=== PATIENT | female | born 1960 | race Caucasian/White ===

== ENCOUNTER 2016-07-05 16:26 | Emergency (ER) | payer MEDICARE, OTHER ==
[~2016-07-05] VITALS: Ht 157.5 cm; Wt 95.3 kg
[2016-07-05] MEDS ORDERED: ESCI20TA PO (16:58)
[2016-07-05] MEDS ORDERED: TIZA2CAP9 PO (16:58)
[2016-07-05] MEDS ORDERED: MELO15TA39 PO (16:58)
[2016-07-05] MEDS ORDERED: OMEP20CA12 PO (16:58)
[2016-07-05] MEDS ORDERED: GABA-488 PO (16:58)
[2016-07-05] MEDS ORDERED: ARPZ20T PO (16:58)
--- NOTE | 2016-07-05 18:54 | ED Back Pain ---
General Chief Complaint: Back Problems Stated Complaint: LOWER BACK AND LEG PAIN Nursing Triage Note: Pt has chronic low back pain worse today. Pt reports pain radiates down both legs. Nursing Sepsis Screen: No Definite Risk (LIBERTY ESPINAL MD) History of Present Illness Time Seen by Provider: 18:50 Initial Comments This 55 year old female presents w severe low back pain radiating down both legs which began this morning. The patient has associated numbness in both feet. No loss of bowel or bladder control. No fever, chill, or fall. (LIBERTY ESPINAL MD) Allergies and Home Medications Allergies Coded Allergies: aspirin (Unverified Allergy, Unknown, 07/05/16) hydromorphone (Unverified Allergy, Unknown, 07/05/16) Home Medications Aripiprazole 20 Mg Tablet 20 MG PO DAILY (Reported) Cyclobenzaprine HCl 10 Mg Tablet #15 10 MG PO Q8H Prescribed by: ABBIE BECKETT on 07/05/162029 Escitalopram Oxalate 20 Mg Tablet 20 MG PO DAILY (Reported) Gabapentin 300 Mg Capsule 300 MG PO TID (Reported) Meloxicam 15 Mg Tablet 15 MG PO DAILY (Reported) Meloxicam 15 Mg Tablet #10 15 MG PO DAILY Prescribed by: ABBIE BECKETT on 07/05/16 2030 Omeprazole 20 Mg Capsule.dr 20 MG PO DAILY (Reported) Tizanidine HCl 2 Mg Capsule Unknown Dose PO TID (Reported) Constitutional: No chills EENTM: No ear pain Respiratory: No cough Cardiovascular: No chest pain Gastrointestinal: No abdominal pain, No nausea, No vomiting Genitourinary: No decreased output Musculoskeletal: see HPI back painNo joint pain Skin: No rash Psychiatric/Neurological: No Symptoms Reported (LIBERTY ESPINAL MD) Past Psxyswd-Aexzos-Jnspld Hx Patient Social History Alcohol Use: Denies Use Recreational Drug Use: No Smoking Status: Never a Smoker Recent Foreign Travel: No Contact w/Someone Who Travel: No Recent Infectious Disease Expo: No Recent Hopitalizations: No (LIBERTY ESPINAL MD) Alcohol Use: Past History (HISTORY OF ABUSE, DENIES RECENT USE, PER PT ON 07/05) Recreational Drug Use: No Smoking Status: Current Everyday Smoker (1/2-1 PPD) Type Used: Cigarettes (ABBIE BECKETT DO) Seasonal Allergies Seasonal Allergies: No (LIBERTY ESPINAL MD) Surgeries HX Surgeries: Yes (carpal tunnel) Surgeries: Gallbladder, Hysterectomy (LIBERTY ESPINAL MD) HX Surgeries: Yes (HYST/BSO; RIGHT CARPAL TUNNEL) Surgeries: Gallbladder, Hysterectomy, Oophorectomy, Orthopedic (SOPHY,ABBIE K DO) Respiratory Hx Respiratory Disorders: Yes Respiratory Disorders: COPD (LIBERTY ESPINAL MD) Hx Respiratory Disorders: Yes Respiratory Disorders: Chronic Bronchitis, COPD (SOPHY,ABBIE K DO) Cardiovascular Hx Cardiac Disorders: No (LIBERTY ESPINAL MD) Hx Cardiac Disorders: No (SOPHY,ABBIE K DO) Neurological Hx Neurological Disorders: No (LIBERTY ESPINAL MD) Hx Neurological Disorders: No (SOPHY,ABBIE K DO) 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 System Hx 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 Disorders: No (LIBERTY ESPINAL MD) 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 (SOPHY,ABBIE K DO) Genitourinary Hx Genitourinary Disorders: No (LIBERTY ESPINAL MD) Hx Genitourinary Disorders: No (SOPHY,ABBEI K DO) Gastrointestinal Hx Gastrointestinal Disorders: No (LIBERTY ESPINAL MD) Hx Gastrointestinal Disorders: Yes (S/P JAQUELINE) Gastrointestinal Disorders: Gall Bladder Disease (SOPHY,ABBIE K DO) Musculoskeletal Hx Musculoskeletal Disorders: Yes Musculoskeletal Disorders: Degenerate Disk Disease, Chronic Back Pain (LIBERTY ESPINAL MD) Hx Musculoskeletal Disorders: Yes ("DISABILTY SINCE 2008 FOR CHRONIC BACK PAIN "; RIGHT CARPAL TUNNEL REPAIR ) Musculoskeletal Disorders: Degenerate Disk Disease, Chronic Back Pain (SOPHY,ABBIE K DO) Endocrine Hx Endocrine Disorders: No (LIBERTY ESPINAL MD) Hx Endocrine Disorders: No (SOPHYABBIE K DO) HEENT HX ENT Disorders: No (LIBERTY ESPINAL MD) HX ENT Disorders: No (SOPHY,ABBIE K DO) Cancer Hx Cancer: No (LIBERTY ESPINAL MD) Hx Cancer: No (SOPHYABBIE K DO) Psychosocial Hx Psychiatric Problems: No (LIBERTY ESPINAL MD) Hx Psychiatric Problems: Yes Behavioral Health Disorders: Anxiety, Bipolar, Depression (SOPHY,ABBIE K DO) Integumentary HX Skin/Integumentary Disorder: No (LIBERTY ESPINAL MD) Blood Transfusions Hx Blood Disorders: No (LIBERTY ESPINAL MD) Reviewed Nursing Assessment Reviewed/Agree w Nursing PMH: Yes (LIBERTY ESPINAL MD) Physical Exam Vital Signs Vital Sign - Last 12Hours 07/05/16 16:53 Temp 99.1 Pulse 98 Resp 18 B/P 107/74 Pulse Ox 93 O2 Delivery Room Air (ABBIE BECKETT DO) Vital Signs Capillary Refill : Less Than 3 Seconds (LIBERTY ESPINAL MD) General Appearance: No Apparent Distress HEENT: TMs Normal Neck: Normal Inspection Cardiovascular: Regular Rate, Rhythm Respiratory: Lungs Clear Gastrointestinal: Normal Bowel Sounds Back: Normal Inspection Extremity: Normal Inspection Neurologic/Psychiatric: No Motor/Sensory Deficits Normal Mood/Affect Skin: Normal Color Warm/Dry (LIBERTY ESPINAL MD) General Appearance: No Apparent Distress Other (DOES NOT APPEAR TO BE IN ANY DISCOMFORT. WALKS UPRIGHT AND MOVES WITHOUT DIFFICULTY) HEENT: PERRL/EOMI Other (POOR DENTITION AND MULTIPLE MISSING TEETH) Neck: Full Range of Motion Normal Inspection Non Tender Cardiovascular: Regular Rate, Rhythm No Edema No JVD No Murmur Normal Peripheral Pulses Respiratory: Chest Non Tender Normal Breath Sounds No Accessory Muscle Use No Respiratory Distress Peripheral Pulses: 2+ Dorsalis Pedis (R), 2+ Left Dors-Pedis (L) Gastrointestinal: Normal Bowel Sounds No Organomegaly No Pulsatile Mass Non Tender Soft Back: Other (MILD DIFFUSE LOWER BACK TENDERNESS. DTR'S INTACT. NEGATIVE STRAIGHT LEG RAISING TEST BILATERALLY. 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 Norm as Tested Skin: Normal Color Warm/DryNo Rash (ABBIE BECKETT DO) Progress/Results/Core Measures Results/Orders Lab Results Laboratory Tests Test 07/05/16 19:53 Range/Units Ur Tricyclic Antidepressants Screen NEGATIVE NEGATIVE Urine Amphetamines Screen NEGATIVE NEGATIVE Urine Bacteria NONE /HPF Urine Barbiturates Screen NEGATIVE NEGATIVE Urine Benzodiazepines Screen NEGATIVE NEGATIVE Urine Bilirubin NEGATIVE NEGATIVE Urine Cannabinoids Screen NEGATIVE NEGATIVE Urine Casts NONE /LPF Urine Clarity CLEAR Urine Cocaine Screen NEGATIVE NEGATIVE Urine Color YELLOW Urine Crystals NONE /LPF Urine Culture Indicated NO Urine Glucose (UA) NEGATIVE NEGATIVE Urine Ketones NEGATIVE NEGATIVE Urine Leukocyte Esterase NEGATIVE NEGATIVE Urine Methadone Screen NEGATIVE NEGATIVE Urine Methamphetamines Screen NEGATIVE NEGATIVE Urine Mucus SMALL H /LPF Urine Nitrite NEGATIVE NEGATIVE Urine Opiates Screen NEGATIVE NEGATIVE Urine Oxycodone Screen NEGATIVE NEGATIVE Urine Phencyclidine Screen NEGATIVE NEGATIVE Urine Propoxyphene Screen NEGATIVE NEGATIVE Urine Protein NEGATIVE NEGATIVE Urine RBC NONE /HPF Urine RBC (Auto) NEGATIVE NEGATIVE Urine Specific [place] 1.015 L 1.016-1.022 Urine Squamous Epithelial Cells 2-5 /HPF Urine Urobilinogen NORMAL NORMAL MG/DL Urine WBC NONE /HPF Urine pH 6 5-9 (ABBIE BECKETT DO) My Orders Orders-ABBIE BECKETT DO Drug Screen Stat (Urine) (07/05/16 19:37) Ua Culture If Indicated (07/05/16 19:37) (ABBIE BECKETT DO) Medications Given in ED Current Medications Medications Dose Ordered Sig/Amita Route Start Time Stop Time Status Last Admin Dose Admin Fentanyl Citrate 100 mcg ONCE PRN IM 07/05/16 19:00 07/05/16 21:08 DC 07/05/16 18:59 100 MCG (ABBIE BECKETT DO) Vital Signs/I&O Vital Sign - Last 12Hours 07/05/16 07/05/16 16:53 21:04 Temp 99.1 99.1 Pulse 98 95 Resp 18 16 B/P 107/74 Pulse Ox 93 95 O2 Delivery Room Air (ABBIE BECKETT DO) Blood Pressure Mean: 85 Progress Note : Progress Note 1900--ASSUMED CARE FROM DR. ESPINAL. CT PENDING. PT STATES SHE HAS HAD CHRONIC BACK PAIN FOR OVER 15 YEARS, AND HAS BEEN ON DISABILITY FOR BACK PAIN "DEGENERATIVE DISC DISEASE" SINCE 2008. CLAIMS SHE HAS NEVER SEEN ANY KIND OF SPECIALIST FOR HER BACK--NEVER SEEN SURGEON OR PAIN SPECIALIST JUST MOVED HERE 05/25/16 FROM [place]. HAS NEW PT APPOINTMENT WITH [facility] [place] STATES SHE TAKES MELOXICAM, TRAMADOL, GABAPENTIN, AND TIZANIDINE FOR CHRONIC BACK PAIN--HAS BEEN OUT FOR 2 WEEKS STATES PAIN IS IN LOWER BACK AND RADIATES DOWN BOTH LEGS AND BOTH FEET FEEL NUMB /TINGLY--ALL ARE CHRONIC, BUT WORSE SINCE THIS AM--BUT NOT ANY DIFFERENT THAT WHAT SHE HAS HAD IN THE PAST. HAS NOT TAKEN ANYTHING FOR PAIN TODAY NO INJURY NO DIFFICULTY WITH BOWELS OR BLADDER PT WAS GIVEN 100 MCG FENTANYL PRIOR TO MY ARRIVAL PT STATES PAIN IS BETTER AT TIME OF DISMISSAL PT AMBULATES OUT OF ER WITHOUT DIFFICULTY (ABBIE BECKETT DO) Diagnostic Imaging Comments CT LUMBAR SPINE--MILD DEGENERATIVE CHANGES AT L4-5 AND L5-S1, PER RADIOLOGIST REPORT @ 2026 Reviewed: Reviewed by Me (ABBIE BECKETT DO) Departure Impression Impression: Primary Impression: Chronic back pain Disposition: HOME, SELF-CARE Condition: Stable Departure-Patient Inst. Referrals: [facility] Patient Instructions: MANAGING YOUR CHRONIC PAIN, Low Back Pain (DC) Add. Discharge Instructions: ALTERNATE ICE AND HEAT TO SORE AREAS AT 20 MINUTE INTERVALS KEEP YOUR APPOINTMENT WITH [facility] THIS [place]EEK SCHEDULED All discharge instructions reviewed with patient and/or family. Voiced understanding. Scripts Cyclobenzaprine HCl 10 Mg [id number] Mg PO Q8H #15 TAB Prov:ABBIE BECKETT DO 07/05/16 Meloxicam (Mobic)15 Mg Aiftpu01 Mg PO DAILY #10 TAB Prov:ABBIE BECKETT DO 07/05/16 LIBERTY ESPINAL MD Jul 05, 2016 18:53 ABBIE BECKETT DO Jul 05, 2016 19:31
[2016-07-05] MEDS ORDERED: fentaNYL INJECTION 100 MCG/2 ML AMP IM PRN (19:00)
[2016-07-05 19:59] LABS: BILIRUBIN,URINE NEGATIVE (NEGATIVE); KETONES,URINE NEGATIVE (NEGATIVE); LEUKOCYTE ESTERASE ,URINE NEGATIVE (NEGATIVE); NITRITE,URINE NEGATIVE (NEGATIVE); PH,URINE 6 (5-9); PROTEIN,URINE NEGATIVE (NEGATIVE); UROBILINOGEN,URINE NORMAL (NORMAL)
--- NOTE | 2016-07-05 20:02 | Diagnostic Imaging Report ---
PROCEDURE: CT lumbar spine without contrast. TECHNIQUE: Multiple contiguous axial images were obtained through the lumbar spine without the use of intravenous contrast. Sagittal and coronal reformations were then performed. INDICATION: Lower back pain radiating to both lower extremities for several months with worsening over the last 14 hours. No known trauma. FINDINGS: There are a few diverticuli. The surrounding soft tissues otherwise appear normal. No inflammation is present. There is no fracture or subluxation. There is mild disc space narrowing at L5-S1. L4-5 level demonstrates mild/moderate facet arthropathy, left greater than right. There is a minimal disc bulge. Mild central stenosis is present. L5-S1 level demonstrates mild to moderate facet arthropathy. Mild narrowing of the neural foramina is present. IMPRESSION: There are mild degenerative changes at L4-5 and L5-S1. A few colonic diverticula are present without inflammation. Dictated by: Dictated on workstation # [id number]
[2016-07-05] MEDS ORDERED: MELO15TA14 PO (20:30)
[2016-07-05] MEDS ORDERED: CYCL10TA9 PO (20:30)
[2016-07-05 21:04] VITALS: BP 110/76
== END 2016-07-05 21:05 | disposition home or self-care (01) ==
LOC: ER 16:29
DX: M54.5 Low back pain (principal); G89.29 Other chronic pain; K57.30 Diverticulosis of large intestine without perforation or abscess without bleeding; J44.9 Chronic obstructive pulmonary disease, unspecified; F17.210 Nicotine dependence, cigarettes, uncomplicated
CPT/HCPCS: 72131; 80306; 81000; 96372; 99282

== ENCOUNTER 2016-10-19 16:17 | Emergency (ER) | payer MEDICARE ==
[~2016-10-19] VITALS: Ht 157.5 cm; Wt 104.3 kg
[~2016-10-19 16:17] MED LIST: ARPZ20T PO; CYCL10TA9 PO; ESCI20TA PO; GABA-488 PO; MELO15TA14 PO; MELO15TA39 PO; OMEP20CA12 PO; TIZA2CAP9 PO
[2016-10-19 16:42] LABS: BASOPHILS # (AUTO) 0.1 10^3/uL (0.0-0.1); BASOPHILS % (AUTO) 1 % (0-10); EOSINOPHILS # (AUTO) 0.1 10^3/uL (0.0-0.3); EOSINOPHILS % (AUTO) 2 % (0-10); LYMPHOCYTES # (AUTO) 2.3 X 10^3 (1.0-4.0); LYMPHOCYTES % (AUTO) 36 % (12-44); MEAN CORPUSCULAR HEMOGLOBIN 30 PG (25-34); MEAN CORPUSCULAR HGB CONC 33 G/DL (32-36); MEAN CORPUSCULAR VOLUME 93 FL (80-99); MEAN PLATELET VOLUME 10.5 FL (7.4-10.4); MONOCYTES # (AUTO) 1.1 X 10^3 (0.0-1.0); MONOCYTES % (AUTO) 17 % (0-12); NEUTROPHILS # (AUTO) 2.8 X 10^3 (1.8-7.8); NEUTROPHILS % (AUTO) 44 % (42-75); PLATELET COUNT 272 10^3/uL (130-400); RED BLOOD COUNT 4.55 10^6/uL (4.35-5.85); RED CELL DISTRIBUTION WIDTH 14.2 % (10.0-14.5); WHITE BLOOD COUNT 6.4 10^3/uL (4.3-11.0)
--- NOTE | 2016-10-19 16:54 | ED Neurological Problem ---
General Chief Complaint: General Problems/Pain Stated Complaint: NUMBNESS IN EXTREMITIES Nursing Triage Note: c/o numbness to hands and feet x 3 days. Reports having chronic back pain as well. Pt in no acute distress on ER arrival. Nursing Sepsis Screen: No Definite Risk Source: patient, EMS, old records Exam Limitations: no limitations (EWELINA GRAVES MD) History of Present Illness Time seen by provider: 16:15 Initial Comments This 55-year-old woman presents to the emergency room via EMS with complaints of numbness of all extremities. She states the numbness is transient and varies in intensity. She has some associated weakness with it but the primary complaint is numbness. She reports having falls at home as a result. She denies any injury related to her falls. She had a similar visit with similar complaints on July 05. She was found to have minor degenerative disc disease of the lumbar spine by CT at that time. 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 She reports having an MRI performed in [place] and more recently about a year and a half ago in [place]. Kong bhandari [facility] was contacted and reports he has no records from these facilities. She has not seen a application security specialist and denies ever using steroids as treatment for her spinal problems. She denies any bowel or bladder dysfunction. Patient was able to ambulate independently per EMS report. (EWELINA GRAVES MD) Allergies and Home Medications Allergies Coded Allergies: aspirin (Unverified Allergy, Unknown, 07/05/16) hydromorphone (Unverified Allergy, Unknown, 07/05/16) Home Medications Aripiprazole 20 Mg Tablet, 20 MG PO DAILY, (Reported) Cyclobenzaprine HCl 10 Mg Tablet, 10 MG PO Q8H, #15 Prescribed by: ABBIE BECKETT on 07/05/162029 Escitalopram Oxalate 20 Mg Tablet, 20 MG PO DAILY, (Reported) Gabapentin 300 Mg Capsule, 300 MG PO TID, (Reported) Hydrocodone/Acetaminophen 1 Each Tablet, 1 EACH PO Q4H PRN for PAIN-MODERATE TO SEVERE, #10 Prescribed by: GUANAKO LOCK on 10/19/16 173 Meloxicam 15 Mg Tablet, 15 MG PO DAILY, (Reported) Meloxicam 15 Mg Tablet, 15 MG PO DAILY, #10 Prescribed by: ABBIE BECKETT on 07/05/162029 Omeprazole 20 Mg Capsule.dr, 20 MG PO DAILY, (Reported) Prednisone 20 Mg Tab, 40 MG PO DAILY for 5 Days Prescribed by: GUANAKO LOCK on 10/19/16 173 Tizanidine HCl 2 Mg Capsule, Unknown Dose PO TID, (Reported) Constitutional: see HPI, weakness Eyes: No Symptoms Reported Ears, Nose, Mouth, Throat: no symptoms reported Respiratory: no symptoms reported Cardiovascular: no symptoms reported Gastrointestinal: no symptoms reported Genitourinary: no symptoms reported Musculoskeletal: see HPI Skin: no symptoms reported Psychiatric/Neurological: See HPI Endocrine: No Symptoms Reported Hematologic/Lymphatic: No Symptoms Reported (EWELINA GRAVES MD) Past Ujrzcsm-Fdqjok-Fcbfoe Hx Patient Social History Alcohol Use: Denies Use Recreational Drug Use: No Smoking Status: Never a Smoker Type Used: Cigarettes Recent Foreign Travel: No Contact w/Someone Who Travel: No Recent Infectious Disease Expo: No Recent Hopitalizations: No (EWELINA GRAVES MD) Seasonal Allergies Seasonal Allergies: No (EWELINA GRAVES MD) Surgeries HX Surgeries: Yes (HYST/BSO; RIGHT CARPAL TUNNEL) Surgeries: Gallbladder, Hysterectomy, Oophorectomy, Orthopedic (EWELINA GRAVES MD) Respiratory Hx Respiratory Disorders: Yes Respiratory Disorders: Chronic Bronchitis, COPD (EWELINA GRAVES MD) Cardiovascular Hx Cardiac Disorders: No (EWELINA GRAVES MD) Neurological Hx Neurological Disorders: No (EWELINA GRAVES MD) 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 System : No Hx 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 Disorders: No Female 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 Disorders: 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 (EWELINA GRAVES MD) Genitourinary Hx Genitourinary Disorders: No (EWELINA GRAVES MD) Gastrointestinal Hx Gastrointestinal Disorders: Yes (S/P JAQUELINE) Gastrointestinal Disorders: Gall Bladder Disease (EWELINA GRAVES MD) Musculoskeletal Hx Musculoskeletal Disorders: Yes ("DISABILTY SINCE 2008 FOR CHRONIC BACK PAIN "; RIGHT CARPAL TUNNEL REPAIR ) Musculoskeletal Disorders: Degenerate Disk Disease, Chronic Back Pain (EWELINA GRAVES MD) Endocrine Hx Endocrine Disorders: No (EWELINA GRAVES MD) HEENT HX ENT Disorders: No (EWELINA GRAVES MD) Cancer Hx Cancer: No (EWELINA GRAVES MD) Psychosocial Hx Psychiatric Problems: Yes Behavioral Health Disorders: Anxiety, Bipolar, Depression (EWELINA GRAVES MD) Integumentary HX Skin/Integumentary Disorder: No (EWELINA GRAVES MD) Blood Transfusions Hx Blood Disorders: No (EWELINA GRAVES MD) Physical Exam Vital Signs Vital Sign - Last 12Hours 10/19/16 16:39 Temp 97.8 Pulse 82 Resp 16 B/P (MAP) 139/95 Pulse Ox 98 (GUANAKO LOCK APRN) Vital Signs Capillary Refill : Less Than 3 Seconds (EWELINA GRAVES MD) General Appearance: WD/WN, no apparent distress HEENT: PERRL/EOMI, normal ENT inspection Neck: normal inspection Respiratory: lungs clear, normal breath sounds, no respiratory distress, no accessory muscle use Cardiovascular: regular rate, rhythm, no edema, no murmur Gastrointestinal: normal bowel sounds, non tender, soft Extremities: non-tender, normal inspection, no pedal edema 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 Patient was able to maintain balance on her own power.) Motor/Sensory: no sensory deficit Skin: normal color, warm/dry (EWELINA GRAVES MD) Progress/Results/Core Measures Results/Orders Lab Results Laboratory Tests Test 10/19/16 16:30 Range/Units White Blood Count 6.4 4.3-11.0 10^3/uL Red Blood Count 4.55 4.35-5.85 10^6/uL Hemoglobin 13.7 11.5-16.0 G/DL Hematocrit 42 35-52 % Mean Corpuscular Volume 93 80-99 FL Mean Corpuscular Hemoglobin 30 25-34 PG Mean Corpuscular Hemoglobin Concent 33 32-36 G/DL Red Cell Distribution Width 14.2 10.0-14.5 % Platelet Count 272 130-400 10^3/uL Mean Platelet Volume 10.5 H 7.4-10.4 FL Neutrophils (%) (Auto) 44 42-75 % Lymphocytes (%) (Auto) 36 12-44 % Monocytes (%) (Auto) 17 H 0-12 % Eosinophils (%) (Auto) 2 0-10 % Basophils (%) (Auto) 1 0-10 % Neutrophils # (Auto) 2.8 1.8-7.8 X 10^3 Lymphocytes # (Auto) 2.3 1.0-4.0 X 10^3 Monocytes # (Auto) 1.1 H 0.0-1.0 X 10^3 Eosinophils # (Auto) 0.1 0.0-0.3 10^3/uL Basophils # (Auto) 0.1 0.0-0.1 10^3/uL Sodium Level 140 135-145 MMOL/L Potassium Level 4.3 3.6-5.0 MMOL/L Chloride Level 105 98-107 MMOL/L Carbon Dioxide Level 27 21-32 MMOL/L Anion Gap 8 5-14 MMOL/L Blood Urea Nitrogen 15 7-18 MG/DL Creatinine 0.95 0.60-1.30 MG/DL Estimat Glomerular Filtration Rate > 60 BUN/Creatinine Ratio 16 Glucose Level 88 70-105 MG/DL Calcium Level 9.3 8.5-10.1 MG/DL Magnesium Level 2.3 1.8-2.4 MG/DL Total Bilirubin 0.3 0.1-1.0 MG/DL Aspartate Amino Transf (AST/SGOT) 22 5-34 U/L Alanine Aminotransferase (ALT/SGPT) 44 0-55 U/L Alkaline Phosphatase 93 40-136 U/L Total Creatine Kinase 58 29-168 U/L Total Protein 7.0 6.4-8.2 G/DL Albumin 4.0 3.2-4.5 G/DL (GUANAKO LOCK APRN) My Orders Orders - GUANAKO LOCK APRN Methylprednisolone Sod Succ (Solu-Medrol (10/19/16 17:45) (GUANAKO LOCK APRN) Vital Signs/I&O Vital Sign - Last 12Hours 10/19/16 16:39 Temp 97.8 Pulse 82 Resp 16 B/P (MAP) 139/95 Pulse Ox 98 (GUANAKO LOCK APRN) Blood Pressure Mean: 110 Progress Note : Time: 16:59 Progress Note Options were discussed with patient. Since MRI results are not immediately available and the most recent MRI was performed a year and half ago, patient would like to proceed with further imaging to determine if there has been progression of disease in the cervical spine. Labs have also been drawn and are pending. Care of this patient is being transitioned to Guanako Lock APRN at this time. (EWELINA GRAVES MD) Progress Note : Progress Note We did have walkers available here in the emergency room so patient was sent home with one of these for some stability. (GUANAKO LOCK APRN) Diagnostic Imaging Diagonstic Imaging: MRI Plain Films/CT/US/NM/MRI: c-spine Comments NAME: [facility] REC#: [id number] PT STATUS: DEP ER : 1960 PHYSICIAN: EWELINA GRAVES MD ADMIT DATE: 10/19/16/ER Signed Date of Exam: 10/19/16 MRI CERVICAL SPINE W/O CONTRAS PROCEDURE: MR imaging cervical spine without contrast. TECHNIQUE: Multiplanar, multisequence MR imaging of the cervical spine was performed without contrast. INDICATION: Neck pain with bilateral arm and leg pain, numbness, weakness for three days. No known injury. COMPARISON: None. DISCUSSION: No cerebellar tonsillar ectopia. The cervical spinal cord is normal in signal intensity and morphology. The visualized paraspinal soft tissues are unremarkable. Probable hemangioma within the C4 and T3 vertebral bodies. No compression fracture or abnormal subluxation identified. Degenerative changes as detailed below: C2-C3: Mild degenerative disc disease. No central canal or neuroforaminal stenosis. C3-C4: Mild degenerative disc disease. Small central disc osteophyte complex. No central canal stenosis. Mild left neuroforaminal narrowing. C4-C5: Moderate degenerative disc disease. Small diffuse disc osteophyte complex. Severe central canal stenosis with effacement of the CSF. Mild bilateral neuroforaminal narrowing. C5-C6: Moderate degenerative disc disease. Small diffuse disc osteophyte complex. Drfcqeug-um-fxqgzw central canal stenosis. Mild bilateral neuroforaminal narrowing. C6-C7: Mild degenerative disc disease. Central small disc osteophyte complex. Moderate central canal stenosis. Mild neuroforaminal narrowing. IMPRESSION: 1. Degenerative changes of the cervical spine are greatest at the C4-C5 level with severe central canal stenosis. Dictated by: Dictated on workstation # [id number] Dict: 10/19/161724 Trans: 10/19/162140 Interpreted by: BHARAT CARR MD Electronically signed by: BHARAT CARR MD 10/19/162140 (EWELINA GRAVES MD) Departure Communication Progress Notes I did notify Dr. Yen of the MRI findings and my plan to place the patient on steroids and have her follow up with him. He will be happy to see her in follow -up. (GUANAKO LOCK APRN) Impression Impression: Primary Impression: Chronic back pain Additional Impression: Stenosis, cervical spine Disposition: 01 HOME, SELF-CARE Condition: Stable Departure-Patient Inst. Decision time for Depature: 17:37 (GAUNAKO LOCK APRN) Referrals: [facility] (PCP) Primary Care Physician SEAN YEN DO MANE PRO MD Patient Instructions: Spinal Stenosis Add. Discharge Instructions: 1. Follow-up with Dr. Yen. Call his office tomorrow to make an appointment to be seen as soon as he can get you in 2. Steroids as directed 3. Return to ER for any concerns All discharge instructions reviewed with patient and/or family. Voiced understanding. Scripts Hydrocodone/Acetaminophen ([place] 5-325 Tablet) 1 Each Tablet 1 EACH PO Q4H Y for PAIN-MODERATE TO SEVERE, #10 TAB Prov: GUANAKO LOCK APRN 10/19/16 Prednisone (Prednisone) 20 Mg Tab 40 MG PO DAILY for 5 Days, TAB Prov: GUANAKO LOCK APRN 10/19/16 Copy Copies To 1: SEAN YEN DO Copies To 2: ABBE FERNANDO MD, JOSHUA T MD October 19, 2016 16:54 GUANAKO LOCK APRN October 19, 2016 17:39
[2016-10-19 17:10] LABS: ALANINE AMINOTRANSFERASE 44 U/L (0-55); ANION GAP 8 MMOL/L (5-14); ASPARTATE AMINO TRANSFERASE 22 U/L (5-34); BILIRUBIN,TOTAL 0.3 MG/DL (0.1-1.0); BLOOD UREA NITROGEN 15 MG/DL (7-18); BUN/CREATININE RATIO 16; CALCIUM 9.3 MG/DL (8.5-10.1); CARBON DIOXIDE 27 MMOL/L (21-32); CHLORIDE 105 MMOL/L (98-107); CREATINE KINASE 58 U/L (29-168); CREATININE SERUM 0.95 MG/DL (0.60-1.30); GFR ESTIMATED > 60; GLUCOSE 88 MG/DL (70-105); MAGNESIUM 2.3 MG/DL (1.8-2.4); POTASSIUM 4.3 MMOL/L (3.6-5.0); SODIUM 140 MMOL/L (135-145)
--- NOTE | 2016-10-19 17:33 | Diagnostic Imaging Report ---
PROCEDURE: MR imaging cervical spine without contrast. TECHNIQUE: Multiplanar, multisequence MR imaging of the cervical spine was performed without contrast. INDICATION: Neck pain with bilateral arm and leg pain, numbness, weakness for three days. No known injury. COMPARISON: None. DISCUSSION: No cerebellar tonsillar ectopia. The cervical spinal cord is normal in signal intensity and morphology. The visualized paraspinal soft tissues are unremarkable. Probable hemangioma within the C4 and T3 vertebral bodies. No compression fracture or abnormal subluxation identified. Degenerative changes as detailed below: C2-C3: Mild degenerative disc disease. No central canal or neuroforaminal stenosis. C3-C4: Mild degenerative disc disease. Small central disc osteophyte complex. No central canal stenosis. Mild left neuroforaminal narrowing. C4-C5: Moderate degenerative disc disease. Small diffuse disc osteophyte complex. Severe central canal stenosis with effacement of the CSF. Mild bilateral neuroforaminal narrowing. C5-C6: Moderate degenerative disc disease. Small diffuse disc osteophyte complex. Mxrjokld-cj-vyeuip central canal stenosis. Mild bilateral neuroforaminal narrowing. C6-C7: Mild degenerative disc disease. Central small disc osteophyte complex. Moderate central canal stenosis. Mild neuroforaminal narrowing. IMPRESSION: 1. Degenerative changes of the cervical spine are greatest at the C4-C5 level with severe central canal stenosis. Dictated by: Dictated on workstation # [id number]
[2016-10-19] MEDS ORDERED: PRD20T PO (17:39)
[2016-10-19] MEDS ORDERED: HYDR-757 PO (17:39)
[2016-10-19 17:45] VITALS: BP 132/80
[2016-10-19] MEDS ORDERED: methylPREDNISolone 125 MG (Solu-MEDROL) VIAL IVP ONE (17:45)
== END 2016-10-19 17:45 | disposition home or self-care (01) ==
LOC: EDUNIT# 16:17 → ER 16:18
DX: M47.812 Spondylosis without myelopathy or radiculopathy, cervical region (principal); M48.02 Spinal stenosis, cervical region; J44.9 Chronic obstructive pulmonary disease, unspecified; Z79.899 Other long term (current) drug therapy
CPT/HCPCS: 36415; 72141; 80053; 82550; 83735; 85025; 96374

== ENCOUNTER 2016-12-12 16:06 | Emergency (ER) | payer MEDICARE ==
[~2016-12-12] VITALS: Ht 157.5 cm; Wt 97.1 kg
[~2016-12-12 16:06] MED LIST changes: +HYDR-757 PO; +PRD20T PO
[2016-12-12] MEDS ORDERED: ORPHENADRINE 60 MG/2 ML (NORFLEX) AMP IM STA (16:57)
--- NOTE | 2016-12-12 16:57 | ED Back Pain ---
General Chief Complaint: Back Problems Stated Complaint: BACK PAIN Nursing Triage Note: PT AMBULATED TO ROOM. PT STATES SHE HAS DEGENERATIVE DISK DISEASE BUT HER BACK PAIN INCREASED THE LAST WEEK. NO INJURY STATED BY PT. Nursing Sepsis Screen: No Definite Risk History of Present Illness Time Seen by Provider: 16:45 Initial Comments Patient has chronic cervical and lumbar back problems. She is starting physical therapy in 4 days. She's had no acute injuries reports increased pain over the last 3-4 days. She has not taken her pain medicine or muscle relaxant today as she was seeking a ride to come here. Timing/Duration: 3-4 Days Severity: Moderate Pain/Injury Location: Neck, Other (lumbar spine) Radiation: Lower Legs, Upper Legs Method of Injury: Unknown Modifying Factors: Improves With Pain Medication, Improves With Rest Associated Symptoms: denies symptoms, No loss of bladder control, No loss of bowel control Allergies and Home Medications Allergies Coded Allergies: aspirin (Unverified Allergy, Unknown, 07/05/16) hydromorphone (Unverified Allergy, Unknown, 07/05/16) Home Medications Aripiprazole 20 Mg Tablet, 20 MG PO DAILY, (Reported) Cyclobenzaprine HCl 10 Mg Tablet, 10 MG PO Q8H, #15 Prescribed by: ABBIE BECKETT on 07/05/162029 Escitalopram Oxalate 20 Mg Tablet, 20 MG PO DAILY, (Reported) Gabapentin 300 Mg Capsule, 300 MG PO TID, (Reported) Hydrocodone/Acetaminophen 1 Each Tablet, 1 EACH PO Q4H PRN for PAIN-MODERATE TO SEVERE, #10 Prescribed by: GUANAKO ROBERT on 10/19/161738 Meloxicam 15 Mg Tablet, 15 MG PO DAILY, (Reported) Meloxicam 15 Mg Tablet, 15 MG PO DAILY, #10 Prescribed by: ABBIE BECKETT on 07/05/162029 Omeprazole 20 Mg Capsule.dr, 20 MG PO DAILY, (Reported) Prednisone 20 Mg Tab, 40 MG PO DAILY for 5 Days Prescribed by: GUANAKO ROBERT on 10/19/161738 Tizanidine HCl 2 Mg Capsule, Unknown Dose PO TID, (Reported) Constitutional: no symptoms reported, see HPI Musculoskeletal: see HPI, back pain, neck pain All Other Systems Reviewed Negative Unless Noted: Yes Past Jwvqbtr-Abfdik-Kmnbxy Hx Patient Social History Alcohol Use: Denies Use Recreational Drug Use: No Smoking Status: Former Smoker Type Used: Cigarettes 2nd Hand Smoke Exposure: No Recent Foreign Travel: No Contact w/Someone Who Travel: No Recent Infectious Disease Expo: No Recent Hopitalizations: No Seasonal Allergies Seasonal Allergies: No Surgeries HX Surgeries: Yes (HYST/BSO; RIGHT CARPAL TUNNEL) Surgeries: Gallbladder, Hysterectomy, Oophorectomy, Orthopedic Respiratory Hx Respiratory Disorders: Yes Respiratory Disorders: Chronic Bronchitis, COPD Cardiovascular Hx Cardiac Disorders: No Neurological Hx Neurological Disorders: No 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 System Hx 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 Disorders: No Female 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 Disorders: 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 Genitourinary Hx Genitourinary Disorders: No Gastrointestinal Hx Gastrointestinal Disorders: Yes (S/P JAQUELINE) Gastrointestinal Disorders: Gall Bladder Disease Musculoskeletal Hx Musculoskeletal Disorders: Yes ("DISABILTY SINCE 2008 FOR CHRONIC BACK PAIN "; RIGHT CARPAL TUNNEL REPAIR ) Musculoskeletal Disorders: Degenerate Disk Disease, Chronic Back Pain Endocrine Hx Endocrine Disorders: No HEENT HX ENT Disorders: No Cancer Hx Cancer: No Psychosocial Hx Psychiatric Problems: Yes Behavioral Health Disorders: Anxiety, Bipolar, Depression Integumentary HX Skin/Integumentary Disorder: No Blood Transfusions Hx Blood Disorders: No Reviewed Nursing Assessment Reviewed/Agree w Nursing PMH: Yes Physical Exam Vital Signs Vital Sign - Last 12Hours 12/12/16 16:34 Temp 98.2 Pulse 73 Resp 20 B/P (MAP) 164/104 Pulse Ox 94 O2 Delivery Room Air Capillary Refill : Less Than 3 Seconds General Appearance: No Apparent Distress, WD/WN Neck: Normal Inspection, Supple, Limited Range of Motion (secondary to pain), No Lymphadenopathy (L), No Lymphadenopathy (R), Tender Lateral Cardiovascular: Regular Rate, Rhythm, No Edema, No Murmur Back: Normal Inspection, No CVA Tenderness, Decreased Range of Motion ( secondary to pain), Muscle Spasm, Vertebral Tenderness Extremity: Normal Capillary Refill, Normal Inspection, Normal Range of Motion, Non Tender, No Calf Tenderness, No Pedal Edema Neurologic/Psychiatric: Alert, Oriented x3, No Motor/Sensory Deficits, Normal Mood/Affect Skin: Normal Color, Warm/Dry Progress/Results/Core Measures Results/Orders My Orders Orders - CHEALEJO SLITTING MACHINE FEEDER Orphenadrine Injection (Norflex Injectio (12/12/16 16:57) Hydrocodone/Apap 7.5/325 Tab (Lortab 7. (12/12/16 16:59) Vital Signs/I&O Vital Sign - Last 12Hours 12/12/16 12/12/16 16:34 18:23 Temp 98.2 98.2 Pulse 73 66 Resp 20 20 B/P (MAP) 164/104 Pulse Ox 94 95 O2 Delivery Room Air Room Air Blood Pressure Mean: 124 Progress Note : Time: 16:45 Progress Note Initial evaluation completed, since the patient has not had her muscle relaxant and 18 hours for additional pain medicine we will start with Norflex 60 mg IM and hydrocodone/APAP 75/325 mg. Then reevaluation. Departure Impression Impression: Primary Impression: Cervical pain (neck) Additional Impression: Chronic back pain Qualified Codes: M54.41 - Lumbago with sciatica, right side; M54.42 - Lumbago with sciatica, left side; G89.29 - Other chronic pain Disposition: 01 HOME, SELF-CARE Condition: Improved Departure-Patient Inst. Decision time for Depature: 17:30 Patient Instructions: MANAGING YOUR CHRONIC PAIN, Low Back Pain (DC), Upper Back Pain (DC) Add. Discharge Instructions: Ice to neck and low back 20 minutes every 2 hours. Walk 10-15 minutes every 3-4 hours. Follow-up with Dr. Yen for continued symptoms. Appointment to start physical therapy this week. Return to emergency department for increased pain, numbness tingling in arms or legs, inability to control urine or bowel movement, new problems or concerns. Take prescribed medication as directed. All discharge instructions reviewed with patient and/or family. Voiced understanding. ALEJO BOLTON Dec 12, 2016 16:57
[2016-12-12] MEDS ORDERED: HYDROcodone/APAP 7.5 MG/325 MG (LORTAB, LORCET PLUS) TABLET PO STA (16:59)
[2016-12-12 18:23] VITALS: BP 159/98
== END 2016-12-12 18:23 | disposition home or self-care (01) ==
LOC: EDUNIT# 16:06 → ER 16:07
DX: M54.2 Cervicalgia (principal); M54.5 Low back pain; M47.9 Spondylosis, unspecified; F31.9 Bipolar disorder, unspecified; F41.9 Anxiety disorder, unspecified; J44.9 Chronic obstructive pulmonary disease, unspecified; Z90.721 Acquired absence of ovaries, unilateral; Z87.891 Personal history of nicotine dependence; Z90.49 Acquired absence of other specified parts of digestive tract; Z90.710 Acquired absence of both cervix and uterus

== ENCOUNTER 2017-01-20 19:02 | Emergency (ER) | payer MEDICARE ==
[~2017-01-20] VITALS: Ht 157.5 cm; Wt 90.7 kg
[2017-01-20] MEDS ORDERED: HYDROcodone/APAP 5 MG/325 MG (LORTAB) TAB PO STA (19:26)
[2017-01-20] MEDS ORDERED: CYCLOBENZAPRINE 10 MG (FLEXERIL) TAB PO STA (19:26)
--- NOTE | 2017-01-20 19:30 | ED Fall/Injury ---
General Chief Complaint: General Problems/Pain Stated Complaint: FALL Nursing Triage Note: PT TO ED 9 W/ C/O LOWER EXTREMITY PAIN ET NUMBNESS ONSET AFTER FALLING TODAY AT 1100. PT WAS AMBULATORY TO THE AMBULANCE UPON THEIR ARRIVAL. NO LOSS OF BOWEL OR BLADDER CONTROL. NO DISTRESS NOTED Source: patient, EMS Exam Limitations: no limitations History of Present Illness Time seen by provider: 19:10 Initial Comments 56-year-old female patient presents to the emergency department with complaints of falling at home in her kitchen at 1100 today. States as the day progressed she has noticed increased low back pain radiating up her back and down her bilateral legs. Said complains of tingling of the bilateral thighs. Denies bowel or bladder incontinence. Denies numbness of the genitals. Does report hitting her head without loss of consciousness or confusion. Does complain of a headache at this time. Patient was able to ambulate to the cot per EMS. Patient is moving all 4 extremities without difficulty. Location Injury Occurred: home Occurred: this morning (1100) Injuries/Pain Location: head, back Context: slipped Loss of Consciousness: no loss of consciousness Modifying Factors: Worse With Movement Allergies and Home Medications Allergies Coded Allergies: aspirin (Unverified Allergy, Unknown, 07/05/16) hydromorphone (Unverified Allergy, Unknown, 07/05/16) Home Medications Aripiprazole 20 Mg Tablet, 20 MG PO DAILY, (Reported) Cyclobenzaprine HCl 10 Mg Tablet, 10 MG PO Q8H, #15 Prescribed by: ABBIE BECKETT on 07/05/162029 Escitalopram Oxalate 20 Mg Tablet, 20 MG PO DAILY, (Reported) Gabapentin 300 Mg Capsule, 300 MG PO TID, (Reported) Hydrocodone/Acetaminophen 1 Each Tablet, 1 EACH PO Q4H PRN for PAIN-MODERATE TO SEVERE, #10 Prescribed by: GUANAKO ROBERT on 10/19/161738 Meloxicam 15 Mg Tablet, 15 MG PO DAILY, (Reported) Meloxicam 15 Mg Tablet, 15 MG PO DAILY, #10 Prescribed by: ABBIE BECKETT on 07/05/162029 Omeprazole 20 Mg Capsule.dr, 20 MG PO DAILY, (Reported) Prednisone 20 Mg Tab, 40 MG PO DAILY for 5 Days Prescribed by: GUANAKO ROBERT on 10/19/161738 Tizanidine HCl 2 Mg Capsule, Unknown Dose PO TID, (Reported) Constitutional: No dizziness, No weakness Eyes: No Symptoms Reported Ears, Nose, Mouth, Throat: no symptoms reported Respiratory: No cough, No short of breath Cardiovascular: No chest pain, No palpitations Gastrointestinal: no symptoms reported Genitourinary: no symptoms reported Musculoskeletal: see HPI, back pain, muscle pain (bilateral lower extremities) , No neck pain Skin: no symptoms reported Psychiatric/Neurological: See HPI, Headache, Denies Numbness, Denies Paresthesia, Denies Seizure, Tingling, Denies Weakness All Other Systems Reviewed Negative Unless Noted: Yes (Negative excepted noted.) Past Bcmuczg-Ecdrtn-Zxbskf Hx Patient Social History Alcohol Use: Denies Use Recreational Drug Use: No Smoking Status: Former Smoker Type Used: Cigarettes Former Smoker, Quit: Dec 30, 2007 2nd Hand Smoke Exposure: No Recent Foreign Travel: No Contact w/Someone Who Travel: No Recent Infectious Disease Expo: No Recent Hopitalizations: No Physical Abuse: No Sexual Abuse: No Mistreated: No Fear: No Seasonal Allergies Seasonal Allergies: No Surgeries History of Surgeries: Yes (HYST/BSO; RIGHT CARPAL TUNNEL) Surgeries: Gallbladder, Hysterectomy, Oophorectomy, Orthopedic Respiratory History of Respiratory Disorde: Yes Respiratory Disorders: Chronic Bronchitis, COPD Cardiovascular History of Cardiac Disorders: No Neurological History of Neurological Disord: No 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 System Hx 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 Disorders: No Female 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 Disorders: 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 Genitourinary History of Genitourinary Disor: No Gastrointestinal History of Gastrointestinal Di: Yes (S/P JAQUELINE) Gastrointestinal Disorders: Gall Bladder Disease Musculoskeletal History of Musculoskeletal Dis: Yes ("DISABILTY SINCE 2008 FOR CHRONIC BACK PAIN"; RIGHT CARPAL TUNNEL REPAIR ) Musculoskeletal Disorders: Degenerate Disk Disease, Chronic Back Pain Endocrine History of Endocrine Disorders: No HEENT History of HEENT Disorders: No Cancer History of Cancer: No Psychosocial History of Psychiatric Problem: Yes Behavioral Health Disorders: Anxiety, Bipolar, Depression Suicide Risk Score: 0 Integumentary History of Skin or Integumenta: No Blood Transfusions History of Blood Disorders: No Reviewed Nursing Assessment Reviewed/Agree w Nursing PMH: Yes Family Medical History Significant Family History: No Pertinent Family Hx Physical Exam Vital Signs Vital Sign - Last 12Hours 01/20/17 19:04 Temp 98.5 Pulse 70 Resp 20 B/P (MAP) 133/90 Pulse Ox 97 O2 Delivery Room Air Capillary Refill : Less Than 3 Seconds General Appearance: WD/WN, no apparent distress, other (patient is moving all 4 extremities without difficulty. Patient is able to lift Her head and look around without difficulty.) HEENT: PERRL/EOMI, normal ENT inspection, TMs normal, pharynx normal, other ( normocephalic, atraumatic.) Neck: full range of motion (patient is noted to be looking around the room and lifting her head off the bed without difficulty.), supple, normal inspection, tender lateral, tender midline Cardiovascular: normal peripheral pulses, regular rate, rhythm, no edema, no murmur Respiratory: chest non-tender, lungs clear, normal breath sounds, no respiratory distress, no accessory muscle use Gastrointestinal: normal bowel sounds, non tender, soft, no organomegaly Back: normal inspection, No decreased range of motion, muscle spasm, vertebral tenderness (tenderness palpation of the entire spine without ecchymosis, step- off, or deformity.) Extremities: no pedal edema, normal capillary refill, pelvis stable, other ( tenderness to palpation of the bilateral buttocks and lateral thighs without evidence of ecchymosis or swelling. 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 nml as tested, no motor/sensory deficits, alert, normal mood/affect, oriented x 3 Skin: normal color, warm/dry, No ecchymosis Ben Coma Score Best Eye Response: (4) Open Spontaneously Best Verbal Response: (5) Oriented Best Motor Response: (6) Obeys Commands Ben Total: 15 Progress/Results/Core Measures Results/Orders My Orders Orders - RODRICK ALCOCER Ct Head/Cervical Spine Wo (01/20/17 19:26) Ct Thoracic/Lumbar Spine Wo (01/20/17 19:26) Pelvis (01/20/17 19:26) Cyclobenzaprine Tablet (Flexeril Tablet) (01/20/17 19:26) Hydrocodone/Apap 5/325 Tablet (Lortab 5 (01/20/17 19:26) Vital Signs/I&O Vital Sign - Last 12Hours 01/20/17 19:04 Temp 98.5 Pulse 70 Resp 20 B/P (MAP) 133/90 Pulse Ox 97 O2 Delivery Room Air Blood Pressure Mean: 104 Diagnostic Imaging Diagonstic Imaging: CT Plain Films/CT/US/NM/MRI: c-spine, head Reviewed: Reviewed by Me (radiology report reviewed by me) Diagonstic Imaging: CT Plain Films/CT/US/NM/MRI: other (lumbar and thoracic spine) Reviewed: Reviewed by Me (radiology report reviewed by me) Diagonstic Imaging: Xray Plain Films/CT/US/NM/MRI: pelvis Reviewed: Reviewed by Me (radiology report reviewed by me) Departure Impression Impression: Primary Impression: Lumbar radiculopathy, acute Additional Impressions: Neck strain Fall Disposition: HOME, SELF-CARE Condition: Improved Departure-Patient Inst. Decision time for Depature: 20:37 Referrals: EWELINA IRBY (PCP) Primary Care Physician Patient Instructions: Cervical Muscle Strain (DC), Radiculopathy (DC) Add. Discharge Instructions: All discharge instructions reviewed with patient and/or family. Voiced understanding. Medications as instructed. Tylenol extra strength over-the- counter as directed for pain. Ibuprofen 800 mg by mouth every 8 hours as needed for pain. Ice pack for 20 minute intervals as needed for 2-3 days, then use a heating pad or pack if needed. Avoid heavy lifting, strenuous activity, or activities which may result and head injury for 7 days. Follow-up with your primary care physician for recheck if no improvement in symptoms in 7-10 days. Return to the emergency department for worsened symptoms, bowel incontinence, bladder incontinence, seizure, shortness of air, chest pain, numbness of the genitals, or any other concerns. RODRICK ALCOCER Jan 20, 2017 19:30
--- NOTE | 2017-01-20 19:52 | Diagnostic Imaging Report ---
PROCEDURE: CT head and CT cervical spine without contrast. TECHNIQUE: Multiple contiguous axial images were obtained through the brain and cervical spine without the use of intravenous contrast. Sagittal and coronal reformations through the cervical spine were then performed. INDICATION: Post trauma paresthesias. CT HEAD: The ventricles are normal in size, shape and position. There are no masses or hemorrhages. There are no extra-axial fluid collections. There are no skull fractures. IMPRESSION: Negative CT head. CT CERVICAL SPINE: Vertebral body height and alignment appear normal. Disc spaces are well maintained. There is minimal spurring of the endplates at C3-4, C4-5 and C5-6. Posterior elements appear to be intact. There is no prevertebral soft tissue swelling. IMPRESSION: Mild degenerative disc changes in the mid cervical spine. No fracture or acute abnormality is seen. Dictated by: Dictated on workstation # [id number]
--- NOTE | 2017-01-20 20:11 | Diagnostic Imaging Report ---
INDICATION: Fell this morning with pain to the pelvis. EXAMINATION: Pelvis, 01/20/2017. FINDINGS: Frontal pelvis demonstrates no evidence for acute fracture or dislocation with the hip joint spaces intact. Soft tissues are grossly unremarkable. IMPRESSION: No acute process. If pain persists or patient cannot bear weight, further imaging recommended. Dictated by: Dictated on workstation # [id number]
--- NOTE | 2017-01-20 20:13 | Diagnostic Imaging Report ---
INDICATION: Injury from a fall with low back pain and leg paresthesias. EXAMINATION: CT of the thoracolumber spine. FINDINGS: Vertebral height and alignment appear normal. There is some loss of height of T10 vertebral body, particularly posteriorly, but no acute fracture could be confirmed on the axial images. There are some degenerative disc changes present at T11-T12 and T12-L1. Posterior elements are intact. There is spondylosis with osteophytes forming anteriorly and anterolaterally in the thoracic spine. IMPRESSION: Minimal loss of height of the T10 vertebral body but an acute compression fracture cannot be confirmed. There are degenerative changes elsewhere but no acute abnormality is seen. Dictated by: Dictated on workstation # [id number]
[2017-01-20] MEDS ORDERED: CYCL10TA9 PO (20:46)
[2017-01-20] MEDS ORDERED: MELO15TA14 PO (20:46)
[2017-01-20 21:05] VITALS: BP 133/101
== END 2017-01-20 21:05 | disposition home or self-care (01) ==
LOC: EDUNIT# 19:02 → ER 19:03
DX: S16.1XXA Strain of muscle, fascia and tendon at neck level, initial encounter (principal); M54.16 Radiculopathy, lumbar region; F41.9 Anxiety disorder, unspecified; F32.9 Major depressive disorder, single episode, unspecified; J44.9 Chronic obstructive pulmonary disease, unspecified; Z90.49 Acquired absence of other specified parts of digestive tract; Z87.891 Personal history of nicotine dependence; Z90.710 Acquired absence of both cervix and uterus; W01.10XA Fall on same level from slipping, tripping and stumbling with subsequent striking against unspecified object, initial encounter; Y92.000 Kitchen of unspecified non-institutional (private) residence as the place of occurrence of the external cause
CPT/HCPCS: 70450; 72125; 72128; 72131; 72170; 99283

== ENCOUNTER 2017-01-25 12:35 | Outpatient (RCR) | payer MEDICARE | END 2017-01-25 14:22 | disposition home or self-care (01) | PROVIDERS: ATTEND Orthopaedic Surgery | DX: M48.02 Spinal stenosis, cervical region (principal); M54.12 Radiculopathy, cervical region ==

== ENCOUNTER 2017-03-27 15:07 | Emergency (ER) | payer MEDICARE ==
[~2017-03-27] VITALS: Ht 157.5 cm; Wt 98.4 kg
--- OUTSIDE RECORDS SUMMARY | 2017-03-27 15:12 | XMS REPORT ---
Author Author NIRMAL HEARD [facility] Address [address] [place] [address] Care Team Providers Care Rotor Casting Machine Setup Operator Name Role Phone NIRMAL HEARD Unavailable PROBLEMS Type Condition ICD9-CM Code [id number] Code Onset Dates Condition Status SNOMED Code Problem Mixed hyperlipidemia E78.2 Active 083920402 Problem Primary insomnia F51.01 Active 1566308 Problem Bipolar 1 disorder F31.9 Active 329114234 ALLERGIES No Information SOCIAL HISTORY Never Assessed PLAN OF CARE VITAL SIGNS MEDICATIONS Medication Instructions Dosage Frequency Start Date End Date Duration Status Breo Ellipta 100-25 MCG/INH Inhalation Once a day 1 puff 24h Jul, 30 days Active RESULTS No Results PROCEDURES No Known procedures IMMUNIZATIONS No Known Immunizations MEDICAL (GENERAL) HISTORY Type Description Date Medical History COPD Medical History degenerative disease lumbosacral spine Medical History Arthritis Medical History spinal stenosis in neck Surgical History hysterectomy, abdominal Surgical History carpel tunnel Right writst 1982 Surgical History cholecystectomy 2012 Hospitalization History Surgery(s) Hospitalization History Colon infection 2015
--- OUTSIDE RECORDS SUMMARY | 2017-03-27 15:13 | XMS REPORT ---
Author Author NIRMAL HEARD [facility] Address [address] [place] [address] Care Team Providers Care Bureau Chief Name Role Phone NIRMAL HEARD Unavailable PROBLEMS Type Condition ICD9-CM Code [id number] Code Onset Dates Condition Status SNOMED Code Problem Mixed hyperlipidemia E78.2 Active 603082113 Problem Primary insomnia F51.01 Active 8443243 Problem Bipolar 1 disorder F31.9 Active [id number] ALLERGIES No Information SOCIAL HISTORY Never Assessed PLAN OF CARE VITAL SIGNS MEDICATIONS Unknown Medications RESULTS No Results PROCEDURES No Known procedures [...]
--- OUTSIDE RECORDS SUMMARY | 2017-03-27 15:13 | XMS REPORT ---
Author Author NIRMAL HEARD Organization [facility] Address [address] [place] [address] Care Team Providers Care Integration Architect Name Role Phone NIRMAL HEARD Unavailable PROBLEMS Type Condition ICD9-CM Code XHH91-CT Code Onset Dates Condition Status SNOMED Code Problem Mixed hyperlipidemia E78.2 Active 482438416 Problem Primary insomnia F51.01 Active 8553712 Problem Bipolar 1 disorder F31.9 Active 011208952 ALLERGIES Substance Reaction Event Type Date Status Dilaudid Unknown Drug Allergy May, Active Aspirin Unknown Drug Allergy May, Active SOCIAL HISTORY No smoking Hx information available PLAN OF CARE VITAL SIGNS MEDICATIONS Medication Instructions Dosage Frequency Start Date End Date Duration Status Gabapentin 300 MG Orally Three times a day 1 capsule 8h Active Mobic 15 MG Orally Once a day 1 tablet 24h Active Lexapro 20 mg Orally Once a day 1 tablet 24h Active Ventolin HFA 108 (90 Base) MCG/ACT Inhalation every 4 hrs 2 puffs as needed 4h Active Abilify 20 MG Orally Once a day 1 tablet 24h Active Omeprazole 20 mg Orally Once a day 1 capsule 24h Active Tramadol HCl 50 mg Orally every 6 hrs 1 tablet 6h Active Zanaflex 4 MG Orally 4 times a day 1 tablet 6h Active Advair Diskus 250-50 MCG/DOSE Inhalation Twice a day 1 puff 12h Active Xanax 0.5 MG Orally PRN 1 tablet Active RESULTS No Results PROCEDURES No Known procedures IMMUNIZATIONS No Known Immunizations
--- OUTSIDE RECORDS SUMMARY | 2017-03-27 15:13 | XMS REPORT ---
Author Author NIRMAL HEARD [facility] Address [address] [place] [address] Care Team Providers Care Improvement Rn Name Role Phone NIRMAL HEARD Unavailable PROBLEMS Type Condition ICD9-CM Code [id number] Code Onset Dates Condition Status SNOMED Code Problem Mixed hyperlipidemia E78.2 Active 763600181 Problem Primary insomnia F51.01 Active 9363018 Problem Bipolar 1 disorder F31.9 Active 933254025 ALLERGIES Substance Reaction Event Type Date Status Dilaudid Unknown Drug Allergy Jul, Active Aspirin Unknown Drug Allergy Jul, Active SOCIAL HISTORY Never Assessed PLAN OF CARE Activity Details Follow Up 4 Weeks Reason:leg pain follow up VITAL SIGNS Weight 209 lbs 2016-07-10 Temperature 98.9 degrees Fahrenheit 2016-07-10 Heart Rate 78 bpm 2016-07-10 Respiratory Rate 20 2016-07-10 Blood pressure systolic 110 mmHg 2016-07-10 Blood pressure diastolic 80 mmHg 2016-07-10 MEDICATIONS Medication Instructions Dosage Frequency Start Date End Date Duration Status Mobic 15 MG Orally Once a day 1 tablet 24h Jul, 30 days Active Lexapro 20 MG Orally Once a day 1 tablet 24h 30 days Active Abilify 20 MG Orally Once a day 1 tablet 24h 30 days Active Ventolin HFA 108 (90 Base) MCG/ACT Inhalation every 4 hrs 2 puffs as needed 4h 30 days Active Zanaflex 4 MG Orally 4 times a day 1 tablet 6h Jul, 30 days Active Omeprazole 20 MG Orally Once a day 1 capsule 24h 30 days Active Tramadol HCl 50 MG Orally every 6 hrs 1 tablet 6h Jul, 28 days Active Gabapentin 400 MG Orally Three times a day 1 capsule 8h Jul, 30 day(s) Active Advair Diskus 250-50 MCG/DOSE Inhalation Twice a day 1 puff 12h 30 days Active Xanax 0.5 MG Orally Twice a day 1 tablet 12h Jul, Active RESULTS No Results PROCEDURES Procedure Date Ordered Result Body Site [facility] VISIT NEW PATIENT Jul 10, 2016 IMMUNIZATIONS No Known Immunizations MEDICAL (GENERAL) HISTORY Type Description Date Medical History COPD Medical History degenerative disease lumbosacral spine Medical History Arthritis Medical History spinal stenosis in neck Surgical History hysterectomy, abdominal Surgical History carpel tunnel Right writst 1982 Surgical History cholecystectomy 2013 Hospitalization History Surgery(s) Hospitalization History Colon infection 2016
--- OUTSIDE RECORDS SUMMARY | 2017-03-27 15:13 | XMS REPORT ---
Author Author NIRMAL HEARD [facility] Address [address] [place] [address] Care Team Providers Care Orchard Manager Name Role Phone NIRMAL HEARD Unavailable PROBLEMS Type Condition ICD9-CM Code LDW93-WS Code Onset Dates Condition Status SNOMED Code Problem Mixed hyperlipidemia E78.2 Active 802125022 Problem Primary insomnia F51.01 Active 2637481 Problem Bipolar 1 disorder F31.9 Active 068443561 ALLERGIES No Information SOCIAL HISTORY Never Assessed [...]
--- NOTE | 2017-03-27 15:17 | ED Chest Pain ---
General Stated Complaint: CP/HTN Source: patient Exam Limitations: no limitations History of Present Illness Time seen by provider: 15:15 Initial Comments To ER per EMS from home with reports of central chest pain described as someone sitting on top of her. It is occasionally radiates through to her back and to her left arm. This is been present and of variable intensity for the past 2-3 days. Currently she rates the pain at 6 out of 10. She denies any associated nausea or diaphoresis though she does report some mild dyspnea. She does have a smoking history and diagnosis of COPD. She was given one sublingual nitroglycerin in route without improvement or reduction in pain. She reports an allergy to aspirin so she was not given aspirin in route. Timing/Duration: 2-3 days (I) Severity/Quality: moderate Location: central Radiation: back Activities at Onset: none ASA po CLINICAL CARE MANAGER: No NTG SL CLINICAL CARE MANAGER: Yes Associated Symptoms: back pain Allergies and Home Medications Allergies Coded Allergies: aspirin (Unverified Allergy, Unknown, 07/05/16) hydromorphone (Unverified Allergy, Unknown, 07/05/16) Home Medications Alprazolam 0.5 Mg Tablet, 0.5 MG PO DAILY PRN for ANXIETY, (Reported) Aripiprazole 30 Mg Tablet, 30 MG PO DAILY, (Reported) Gabapentin 400 Mg Capsule, 400 MG PO TID, (Reported) Lamotrigine 25 Mg Tablet, 25 MG PO, (Reported) Meloxicam 15 Mg Tablet, 15 MG PO DAILY, (Reported) Omeprazole 20 Mg Capsule.dr, 20 MG PO DAILY, (Reported) Tizanidine HCl 4 Mg Tablet, 4 MG PO QID, (Reported) Tramadol HCl 50 Mg Tablet, 50 MG PO QID, (Reported) Review of Systems Constitutional: see HPI EENTM: No Symptoms Reported Respiratory: No Symptoms Reported Cardiovascular: See HPI, Chest Pain Gastrointestinal: No Symptoms Reported Genitourinary: No Symptoms Reported Musculoskeletal: no symptoms reported Past Ngagqdu-Olwnqs-Bjnylz Hx Patient Social History Type Used: Cigarettes Former Smoker, Quit: Dec 30, 2007 2nd Hand Smoke Exposure: No Recent Hopitalizations: No Seasonal Allergies Seasonal Allergies: No Surgeries History of Surgeries: Yes (HYST/BSO; RIGHT CARPAL TUNNEL) Surgeries: Gallbladder, Hysterectomy, Oophorectomy, Orthopedic Respiratory History of Respiratory Disorde: Yes Respiratory Disorders: Chronic Bronchitis, COPD Cardiovascular History of Cardiac Disorders: No Neurological History of Neurological Disord: No 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 System Hx 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 Disorders: No Female 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 Disorders: Menstrual Problems PROPERTY MANAGER History: Hysterectomy Genitourinary History of Genitourinary Disor: No Gastrointestinal History of Gastrointestinal Di: Yes (S/P JAQUELINE) Gastrointestinal Disorders: Gall Bladder Disease Musculoskeletal History of Musculoskeletal Dis: Yes ("DISABILTY SINCE 2009 FOR CHRONIC BACK PAIN"; RIGHT CARPAL TUNNEL REPAIR ) Musculoskeletal Disorders: Degenerate Disk Disease, Chronic Back Pain Endocrine History of Endocrine Disorders: No HEENT History of HEENT Disorders: No Cancer History of Cancer: No Psychosocial History of Psychiatric Problem: Yes Behavioral Health Disorders: Anxiety, Bipolar, Depression Integumentary History of Skin or Integumenta: No Blood Transfusions History of Blood Disorders: No Family Medical History Significant Family History: No Pertinent Family Hx Physical Exam Vital Signs Vital Sign - Last 12Hours 03/27/17 15:08 Temp 98.4 Pulse 75 Resp 18 B/P (MAP) 141/93 Pulse Ox 96 O2 Delivery Room Air Capillary Refill : General Appearance: No Apparent Distress, WD/WN HEENT: PERRL/EOMI, TMs Normal Neck: Full Range of Motion, Normal Inspection Respiratory: No Accessory Muscle Use, No Respiratory Distress Cardiovascular: Regular Rate, Rhythm Gastrointestinal: Normal Bowel Sounds, Non Tender, Soft Extremity: Normal Capillary Refill, Normal Inspection Neurologic/Psychiatric: Alert, Oriented x3 Skin: Normal Color, Warm/Dry Progress/Results/Core Measures Results/Orders Lab Results Laboratory Tests Test 03/27/17 15:15 Range/Units White Blood Count 6.8 4.3-11.0 10^3/uL Red Blood Count 4.69 4.35-5.85 10^6/uL Hemoglobin 14.2 11.5-16.0 G/DL Hematocrit 43 35-52 % Mean Corpuscular Volume 91 80-99 FL Mean Corpuscular Hemoglobin 30 25-34 PG Mean Corpuscular Hemoglobin Concent 33 32-36 G/DL Red Cell Distribution Width 13.6 10.0-14.5 % Platelet Count 276 130-400 10^3/uL Mean Platelet Volume 10.1 7.4-10.4 FL Neutrophils (%) (Auto) 58 42-75 % Lymphocytes (%) (Auto) 26 12-44 % Monocytes (%) (Auto) 14 H 0-12 % Eosinophils (%) (Auto) 1 0-10 % Basophils (%) (Auto) 1 0-10 % Neutrophils # (Auto) 4.0 1.8-7.8 X 10^3 Lymphocytes # (Auto) 1.8 1.0-4.0 X 10^3 Monocytes # (Auto) 1.0 0.0-1.0 X 10^3 Eosinophils # (Auto) 0.1 0.0-0.3 10^3/uL Basophils # (Auto) 0.1 0.0-0.1 10^3/uL Prothrombin Time 12.9 12.2-14.7 SEC INR Comment 1.0 0.8-1.4 Activated Partial Thromboplast Time 29 24-35 SEC Sodium Level 138 135-145 MMOL/L Potassium Level 3.4 L 3.6-5.0 MMOL/L Chloride Level 105 98-107 MMOL/L Carbon Dioxide Level 24 21-32 MMOL/L Anion Gap 9 5-14 MMOL/L Blood Urea Nitrogen 13 7-18 MG/DL Creatinine 0.98 0.60-1.30 MG/DL Estimat Glomerular Filtration Rate 59 BUN/Creatinine Ratio 13 Glucose Level 96 70-105 MG/DL Calcium Level 9.4 8.5-10.1 MG/DL Magnesium Level 2.2 1.8-2.4 MG/DL Total Bilirubin 0.5 0.1-1.0 MG/DL Aspartate Amino Transf (AST/SGOT) 23 5-34 U/L Alanine Aminotransferase (ALT/SGPT) 55 0-55 U/L Alkaline Phosphatase 110 40-136 U/L Myoglobin 43.8 10.0-92.0 NG/ML Troponin I < 0.30 <0.30 NG/ML B-Type Natriuretic Peptide < 10.0 <100.0 PG/ML Total Protein 7.2 6.4-8.2 GM/DL Albumin 4.0 3.2-4.5 GM/DL My Orders Orders - GUANAKO ROBERT APRN Cbc With Automated Diff (03/27/17 15:13) Magnesium (03/27/17 15:13) Chest 1 View, Ap/Pa Only (03/27/17 15:13) Ekg Tracing (03/27/17 15:13) Cardiac Profile 1 (03/27/17 15:13) Comprehensive Metabolic Panel (03/27/17 15:13) Myoglobin Serum (03/27/17 15:13) Protime With Inr (03/27/17 15:13) Partial Thromboplastin Time (03/27/17 15:13) O2 (03/27/17 15:13) Monitor-Rhythm Ecg Trace Only (03/27/17 15:13) Lipid Panel (03/28/17 06:00) Saline Lock/Iv-Start (03/27/17 15:13) BNP (03/27/17 15:13) Ct Angio Chest W (03/27/17 15:48) Ns Iv 1000 Ml (Sodium Chloride 0.9%) (03/27/17 16:00) Iohexol Injection (Omnipaque 350 Mg/Ml 1 (03/27/17 16:15) Ns (Ivpb) (Sodium Chloride 0.9% Ivpb Bag (03/27/17 16:15) Medications Given in ED Current Medications Medications Dose Ordered Sig/Aimta Route Start Time Stop Time Status Last Admin Dose Admin Iohexol 150 ml ONCE ONCE IV 03/27/17 16:15 03/27/17 16:16 DC 03/27/17 16:14 125 ML Sodium Chloride 100 ml ONCE ONCE IV 03/27/17 16:15 03/27/17 16:16 DC 03/27/17 16:14 100 ML Vital Signs/I&O Vital Sign - Last 12Hours 03/27/17 03/27/17 03/27/17 15:08 15:08 15:19 Temp 98.4 Pulse 75 Resp 18 B/P (MAP) 141/93 Pulse Ox 96 96 O2 Delivery Room Air Room Air Room Air Diagnostic Imaging Diagonstic Imaging: Xray, CT Plain Films/CT/US/NM/MRI: chest Comments NAME: RAÚL GARG [facility] REC#: [id number] PT STATUS: REG ER : 1960 PHYSICIAN: GUANAKO ROBERT APRN ADMIT DATE: 03/27/17/ER Draft Date of Exam:03/27/17 CHEST 1 VIEW, AP/PA ONLY INDICATION: Chest pain and headache. TECHNIQUE: Single view chest 3:30 p.m. CORRELATION STUDY: None. FINDINGS: Heart size is enlarged. Vasculature is overall within normal limits. Azygos lobe. No pulmonary infiltrate. IMPRESSION: Cardiac enlargement without evidence for overt failure. Dictated on workstation # [id number] Dict: 03/27/17 1541 Trans: 03/27/17 1547 [id number] Interpreted by: SEAN HAMMER DO Electronically signed by: NAME: RAÚL GARG [facility] REC#: [id number] PT STATUS: REG ER : 1960 PHYSICIAN: GUANAKO ROBERT POUNCING MACHINE OPERATOR ADMIT DATE: 03/27/17/ER Signed Date of Exam:03/27/17 CT ANGIO CHEST W PROCEDURE: CT angiography of the chest with contrast. TECHNIQUE: Multiple contiguous axial images were obtained through the chest after uneventful bolus administration of intravenous contrast. Reconstructed CTA MIP acquisitions were also performed. INDICATION: Chest pain. Hypertension. FINDINGS: The lungs are clear. There is no effusion or pneumothorax. There is no mediastinal mass or hemorrhage. There is no aortic dissection. There is no pulmonary embolus. IMPRESSION: Normal CT angiography of chest. Dictated by: Dictated on workstation # [id number] Dict: 03/27/17 1628 Trans: 03/27/17 1636 KB [id number] Interpreted by: BILLY WHITE MD Electronically signed by: BILLY WHITE MD 03/27/17 1636 Departure Impression Impression: Primary Impression: Chest pain Disposition: 01 HOME, SELF-CARE Condition: Stable Departure-Patient Inst. Decision time for Depature: 16:41 Referrals: [facility] (PCP) Primary Care Physician NIRMAL HEARD (Family) Primary Care Physician Patient Instructions: Chest Pain (DC) Add. Discharge Instructions: 1. return to ER as needed for any worsening symptoms 2. See your doctor next week 3. GUANAKO ROBERT APRN Mar 27, 2017 15:17
[2017-03-27 15:23] LABS: BASOPHILS # (AUTO) 0.1 10^3/uL (0.0-0.1); BASOPHILS % (AUTO) 1 % (0-10); EOSINOPHILS # (AUTO) 0.1 10^3/uL (0.0-0.3); EOSINOPHILS % (AUTO) 1 % (0-10); LYMPHOCYTES # (AUTO) 1.8 X 10^3 (1.0-4.0); LYMPHOCYTES % (AUTO) 26 % (12-44); MEAN CORPUSCULAR HEMOGLOBIN 30 PG (25-34); MEAN CORPUSCULAR HGB CONC 33 G/DL (32-36); MEAN CORPUSCULAR VOLUME 91 FL (80-99); MEAN PLATELET VOLUME 10.1 FL (7.4-10.4); MONOCYTES % (AUTO) 14 % (0-12); NEUTROPHILS % (AUTO) 58 % (42-75); PLATELET COUNT 276 10^3/uL (130-400); RED BLOOD COUNT 4.69 10^6/uL (4.35-5.85); RED CELL DISTRIBUTION WIDTH 13.6 % (10.0-14.5); WHITE BLOOD COUNT 6.8 10^3/uL (4.3-11.0)
[2017-03-27] MEDS ORDERED: MELO15TA39 PO (15:30)
[2017-03-27] MEDS ORDERED: OMEP20CA12 PO (15:30)
[2017-03-27] MEDS ORDERED: ARIP30TA10 PO (15:30)
[2017-03-27] MEDS ORDERED: GABA-490 PO (15:30)
[2017-03-27] MEDS ORDERED: TIZA4TAB3 PO (15:30)
[2017-03-27] MEDS ORDERED: ALPR0.5T7 PO (15:30)
[2017-03-27] MEDS ORDERED: TRAM50TA2 PO (15:30)
[2017-03-27] MEDS ORDERED: LAMO25TA PO (15:30)
[2017-03-27 15:34] LABS: PROTHROMBIN TIME PATIENT 12.9 SEC (12.2-14.7)
[2017-03-27 15:44] LABS: ALANINE AMINOTRANSFERASE 55 U/L (0-55); ANION GAP 9 MMOL/L (5-14); ASPARTATE AMINO TRANSFERASE 23 U/L (5-34); BILIRUBIN,TOTAL 0.5 MG/DL (0.1-1.0); BLOOD UREA NITROGEN 13 MG/DL (7-18); BUN/CREATININE RATIO 13; CALCIUM 9.4 MG/DL (8.5-10.1); CARBON DIOXIDE 24 MMOL/L (21-32); CHLORIDE 105 MMOL/L (98-107); CREATININE SERUM 0.98 MG/DL (0.60-1.30); GFR ESTIMATED 59; GLUCOSE 96 MG/DL (70-105); MAGNESIUM 2.2 MG/DL (1.8-2.4); POTASSIUM 3.4 MMOL/L (3.6-5.0); SODIUM 138 MMOL/L (135-145); TOTAL PROTEIN 7.2 GM/DL (6.4-8.2)
--- NOTE | 2017-03-27 15:47 | Diagnostic Imaging Report ---
INDICATION: Chest pain and headache. TECHNIQUE: Single view chest 3:30 p.m. CORRELATION STUDY: None. FINDINGS: Heart size is enlarged. Vasculature is overall within normal limits. Azygos lobe. No pulmonary infiltrate. IMPRESSION: Cardiac enlargement without evidence for overt failure. Dictated by: Dictated on workstation # [id number]
[2017-03-27 15:50] LABS: MYOGLOBIN SERUM 43.8 NG/ML (10.0-92.0)
[2017-03-27] MEDS ORDERED: NS IV 1000 ML 1,000 ML IV SCH (16:00)
[2017-03-27] MEDS ORDERED: NS 100 ML (IVPB) BAG IV ONE (16:15)
[2017-03-27] MEDS ORDERED: IOHEXOL 350 MG/ML 150 ML (OMNIPAQUE 350) VIAL IV ONE (16:15)
--- NOTE | 2017-03-27 16:36 | Diagnostic Imaging Report ---
PROCEDURE: CT angiography of the chest with contrast. TECHNIQUE: Multiple contiguous axial images were obtained through the chest after uneventful bolus administration of intravenous contrast. Reconstructed CTA MIP acquisitions were also performed. INDICATION: Chest pain. Hypertension. FINDINGS: The lungs are clear. There is no effusion or pneumothorax. There is no mediastinal mass or hemorrhage. There is no aortic dissection. There is no pulmonary embolus. IMPRESSION: Normal CT angiography of chest. Dictated by: Dictated on workstation # [id number]
[2017-03-27 16:49] VITALS: BP 141/84
== END 2017-03-27 16:49 | disposition home or self-care (01) ==
LOC: EDUNIT# 15:07 → ER 15:07
DX: R07.89 Other chest pain (principal); J44.9 Chronic obstructive pulmonary disease, unspecified; F41.9 Anxiety disorder, unspecified; F31.9 Bipolar disorder, unspecified; Z90.710 Acquired absence of both cervix and uterus; Z87.891 Personal history of nicotine dependence; Z90.49 Acquired absence of other specified parts of digestive tract; Z87.19 Personal history of other diseases of the digestive system
CPT/HCPCS: 36415; 71010; 71275; 80053; 83735; 83874; 83880; 84484; 85025; 85610; 85730; 93005; 93041